=== PATIENT | male | born 1930 | race Caucasian/White ===

== ENCOUNTER 2017-07-10 07:37 | Inpatient (IN) | payer BC, OTHER ==
[2017-06-19 12:45] VITALS: BMI 28.0
--- NOTE | 2017-06-19 13:23 | PAT Medication Instructions ---
Service Date Jun 19, 2017. Current Home Medication List Amlodipine Besylate-Valsartan (Exforge), 1 TAB PO QDD Ascorbic Acid (Vitamin C), 1 CAP PO QAM Aspirin (Aspirin Ec), 81 MG PO QAM Cholecalciferol (Vitamin D), 400 UNIT PO QAM Dutasteride (Avodart), 0.5 MG PO QDD Magnesium (Magnesium), 200 MG PO QAM Multiple Vitamin (Multivitamin), 1 TAB PO QAM Simvastatin (Zocor), 40 MG PO QDD Terazosin Hcl (Hytrin), 10 MG PO QDD Vitamin E (Vitamin E), 400 UNIT PO QAM [Vitamin B12], 1 TAB PO QAM Medication Instructions For Your Scheduled Surgery - Hold the following medications 2 weeks prior to surgery: Vitamin E (Vitamin E), 400 UNIT PO QAM - Hold the following medications the morning of surgery: [Vitamin B12], 1 TAB PO QAM Magnesium (Magnesium), 200 MG PO QAM Multiple Vitamin (Multivitamin), 1 TAB PO QAM Cholecalciferol (Vitamin D), 400 UNIT PO QAM Ascorbic Acid (Vitamin C), 1 CAP PO QAM - Take the following medications the morning of surgery with a sip of water OTHERWISE NOTHING TO EAT OR DRINK AFTER MIDNIGHT: Aspirin (Aspirin Ec), 81 MG PO QAM - Take the following medications as scheduled the night before surgery: Dutasteride (Avodart), 0.5 MG PO QDD Simvastatin (Zocor), 40 MG PO QDD Terazosin Hcl (Hytrin), 10 MG PO QDD Amlodipine Besylate-Valsartan (Exforge), 1 TAB PO QDD If you have any questions please call us at [phone] or [phone] or [phone]
[2017-06-19 13:58] LABS: BASO % 0.3 %; BASO ABS # 0.02 K/uL (0-0.2); COMPLETE YES; EOS % 3.4 %; HEMATOCRIT 36.2 % (42-52); IG% 0.3 %; LYMPH % 20.9 %; LYMPH ABS # 1.28 K/uL (1.2-3.4); MEAN CORPUSCULAR HEMOGLOBIN 31.1 pg (25-34); MEAN CORPUSCULAR HGB CONC 34.5 g/dl (32-36); MEAN PLATELET VOLUME 9.6 fL (7.4-10.4); MONO % 8.3 %; NEUT % 66.8 %; PLATELET COUNT 145 K/uL (130-400); RED BLOOD COUNT 4.02 M/uL (4.7-6.1); WHITE BLOOD COUNT 6.11 K/uL (4.8-10.8)
[2017-06-19 14:07] LABS: ESTIMATED AVERAGE GLUCOSE 105 mg/dl; HA1C FLAG Normal (Normal)
[2017-06-19 14:10] LABS: PROTHROMBIN TIME (PATIENT) 10.7 SECONDS (9.0-12.0)
[2017-06-19 14:14] LABS: BUN/CREATININE RATIO 15.2 (10-20); CALCIUM 9.4 mg/dl (8.5-10.1); POTASSIUM 4.3 mmol/L (3.5-5.1)
[2017-06-19 14:19] LABS: URINE APPEARANCE CLEAR (CLEAR); URINE BILIRUBIN NEG (NEG); URINE COLOR DK YELLOW; URINE NITRITE NEG (NEG); URINE SPECIFIC GRAVITY 1.025 (1.000-1.030); UROBILINOGEN NEG (NEG); ZZUR CULT IF INDIC CLEAN CATCH NO
[2017-06-19 14:26] LABS: MANUAL MICROSCOPIC REQUIRED? NO; REVIEW REQ? NO
--- NOTE | 2017-06-19 14:38 | DIAGNOSTIC IMAGING REPORT ---
CHEST PREADMISSION(PA/LAT) CLINICAL HISTORY: Preoperative chest COMPARISON STUDY: 07/21/2015 FINDINGS: The heart is normal in size. There is aortic tortuosity. There is no failure. There is no focal pulmonary consolidation. There is stable mild left apical pleural thickening. There are minor left basilar atelectatic changes. There is ankylosis of the dorsal spine with bridging calcification of anterior longitudinal ligament.[ IMPRESSION: No active disease in the chest. Electronically signed by: Ludwig James M.D. 06/19/2017 2:36 PM Dictated Date/Time: 06/19/2017 2:36 PM
--- NOTE | 2017-07-09 14:09 | HISTORY & PHYSICAL EXAMINATION ---
DATE OF ADMISSION: 07/10/2017 CHIEF COMPLAINT: Right hip pain. HISTORY OF PRESENT ILLNESS: The patient is an 86-year-old gentleman with known severe osteoarthritis about his right hip. He requires a walker for ambulation. He has significant pain and disability with activities of daily living. Due to ongoing pain and disability, he now desires to proceed with right total hip arthroplasty. PAST MEDICAL HISTORY: Hyperlipidemia, carotid artery disease, hypertension, and osteoarthritis. PAST SURGICAL HISTORY: Unknown. MEDICATIONS: Amlodipine/valsartan 5/160 one tablet daily, aspirin 81 mg daily, Avodart 0.5 mg daily, Ativan 0.5 mg p.o. at bedtime, nystatin/triamcinolone topical cream to affected area twice daily, Zocor 40 mg at bedtime, Hytrin 10 mg daily, and Eola 1 tablet q. 6 hours p.r.n. pain. ALLERGIES: No known drug allergies. SOCIAL HISTORY AND REVIEW OF SYSTEMS: Noncontributory. PHYSICAL EXAMINATION: GENERAL: Well-nourished and well-developed elderly male who appears his stated age. HEENT: Normocephalic and atraumatic. Extraocular movements intact. Oropharynx is pink and moist. NECK: Supple without adenopathy. LUNGS: Clear to auscultation bilaterally. HEART: Regular rate and rhythm. ABDOMEN: Soft, nontender, and nondistended. EXTREMITIES: Upper extremities are within normal limits. The right hip demonstrates severe loss of motion. There is minimal internal internal/external rotation with significant pain. X-RAYS: X-rays were reviewed. He has severe osteoarthritis about the right hip with complete loss of the joint space. It is difficult to tell where the femoral head ends and the acetabulum begins. There are diffuse osteophytes around the hip joint. ASSESSMENT: Right hip degenerative joint disease. PLAN: Risks versus benefits were discussed. Consent was obtained. The patient's primary care physician is Dr. Nicholas. We will proceed with right total hip arthroplasty upon preop workup and medical clearance. HAZEL
[2017-07-10] VITALS (10 sets, daily range): BP systolic 96–166; BP diastolic 53–78; PULSE 79–87; TEMP 36.3–36.7; O2SAT 95–99; Ht 177.8 cm; Wt 88.6 kg
[~2017-07-10] VITALS: Ht 177.8 cm; Wt 88.6 kg
[2017-07-10] MEDS: TRANEXAMIC ACID INJ 1,000 MG in SODIUM CHLORIDE 0.9% 100ML 100 ML IV SCH ×2 (06:30→09:42)
[~2017-07-10 07:37] MED LIST: ACETAMINOPHEN 500 MG TAB PO SCH; AMLO5TAB PO; ASCO1CAP3 PO; ASPI81TA28 PO; BUPIVACAINE 0.5 % 5 MG/1 ML PF 10ML VIAL ONE; CEFAZOLIN 2000 MG/60 ML D5W 60 ML IV SCH; CHOL400T PO; CeleBREX 200 MG CAP PO SCH; DEXAMETHASONE 4 MG TAB PO SCH; DUTA0.5C PO; FAMOTIDINE 20 MG TAB PO SCH; GABAPENTIN 300 MG CAP PO SCH; LACTATED RINGER'S 1000ML 1,000 ML IV SCH; LACTATED RINGER'S 1000ML 500 ML IV ONE; MAGN200T3 PO; METOCLOPRAMIDE HCL 10 MG TAB PO SCH; MULTTAB58 PO; ROPIVACAINE 5MG/ML 30 ML 150 MG, BUPIVACAINE/EPINEPHR 0.5% MPF 30 ML, KETOROLAC TROMETH... INFIL SCH; SIMV40TA4 PO; TERA1CAP63 PO; VITA1TAB4 PO; VITAMIN B12 PO
--- NOTE | 2017-07-10 08:08 | History & Physical Bridge Note ---
H&P Re-Evaluation Bridge Note: I have examined the patient, reviewed the History & Physical and in the interval since the performance of the History & Physical I have noted the following changes of clinical significance: No changes noted
[2017-07-10] MEDS ORDERED: LIDOCAINE HCL 2% 2 ML VIAL (20MG/ML) ONE (08:49)
[2017-07-10] MEDS ORDERED: FENTANYL CITRATE INJ 50 MCG/1 ML 2 ML VIAL ONE (08:49)
[2017-07-10] MEDS ORDERED: MIDAZOLAM HCL 1 MG/ML 2ML VIAL ONE (08:49)
[2017-07-10] MEDS ORDERED: ONDANSETRON INJ 2 MG/ML 2 ML VIAL ONE (08:50)
[2017-07-10] MEDS ORDERED: PROPOFOL IV EMULSION 10 MG/ML 20 ML VIAL IV ONE (08:50)
[2017-07-10] MEDS ORDERED: POVIDONE-IODINE OP SOLN 30 ML BTL ONE (09:58)
[2017-07-10] MEDS ORDERED: BACITRACIN 50000 UNIT VIAL ONE (09:58)
[2017-07-10] MEDS ORDERED: ORTHO JOINT ANESTHETIC ONE (09:58)
[2017-07-10] MEDS ORDERED: HYDROmorphone INJ 2 MG/ML SYR/VIAL IV PRN (10:15)
[2017-07-10] MEDS ORDERED: PHENYLEPHRINE 100MCG/ML 5ML SYR IV PRN (10:15)
[2017-07-10] MEDS ORDERED: ONDANSETRON INJ 2 MG/ML 2 ML VIAL IV PRN ×2 (10:15→12:00)
[2017-07-10] MEDS ORDERED: ATROPINE SULFATE 0.1 MG/ML 5ML SYR IV PRN (10:15)
[2017-07-10] MEDS ORDERED: EpHEDrine SULFATE INJ 50 MG/ML AMP IV PRN (10:15)
[2017-07-10] MEDS ORDERED: KETOROLAC TROMETHAMINE 15 MG/ML VIAL IV. PRN (10:15)
[2017-07-10] MEDS ORDERED: WATER, STERILE FOR INJ 10 ML VIAL ONE (11:09)
[2017-07-10] MEDS ORDERED: EpHEDrine SULFATE INJ 50 MG/ML AMP ONE (11:09)
[2017-07-10] MEDS ORDERED: PHENYLEPHRINE HCL INJ 10 MG/ML VIAL ONE (11:10)
--- NOTE | 2017-07-10 11:15 | [facility] Post Operative Brief Note ---
Immediate Operative Summary Operative Date Jul 10, 2017. Pre-Operative Diagnosis Right hip degenerative joint disease Post-Operative Diagnosis Right hip degenerative joint disease Procedure(s) Performed Right total hip arthroplasty; uncemented Surgeon Dr. Grant Economics Faculty Member Surgeon(s) Wes Weaver PA-C Estimated Blood Loss 50cc Findings SEVERE oa Specimens A. Right femoral head Disposition Recovery Room / PACU
--- NOTE | 2017-07-10 11:24 | OPERATIVE REPORT ---
DATE OF OPERATION: 07/10/2017 PREOPERATIVE DIAGNOSIS: Osteoarthritis, right hip. POSTOPERATIVE DIAGNOSIS: Osteoarthritis, right hip. PROCEDURE: Right connective total hip arthroplasty. SURGEON: Dr. Grant. INSPECTOR GOVERNMENT PROPERTY: ALEJANDRA Alfaro ANESTHESIA: spinal. COMPLICATIONS: None. IMPLANTS USED: Acetabular reamer used 58, acetabular shell 58, femoral stem 5, and femoral head +0 x 36 ceramic. PROCEDURE: Following induction of adequate spinal anesthesia, the patient was placed in left lateral decubitus position and a right Stephanie-Langenbeck incision was made. Subcutaneous tissue was sharply dissected. Electrocautery used for hemostasis. The fascia was incised throughout the length of the wound and a ramon scissor placed beneath the short external rotators. The pyriformis was tagged with #1 Vicryl. The short external rotators were divided from the posterior aspect of the femur using electrocautery. These were swept posteriorly. A T-capsulotomy incision was made and the hip was dislocated using a combination of flexion, adduction, and internal rotation. Exposure of the femoral neck with old-style Hohmann and a blunt Hohmann was carried out and a femoral rasp was utilized as a guide for making the appropriate level femoral neck cut. This bone fragment was removed and reserved on the back table. Next, attention was turned to the acetabulum where bone hook was used to retract the femur while the offset retractors were placed anterior and posteriorly. A double-angled Hohmann was placed in superior and anterior position exposing the acetabulum nicely. Acetabular labrum as well as posterior capsule elements were removed using a long knife and a long pickup. Fovea centralis was cleared of all soft tissue. Sequential reamings were carried up to a 58 and decision was made to proceed with impaction of a 58 trabecular metal cup. This was impacted and held using a single 35 mm bone screw. The acetabular liner was placed with 15 of elevated posterior wall in the superior and posterior position. Next, attention was turned to the femoral portion of the case where a Bovie and pickup was used to further clear short external rotators from their insertion on the femur. Box osteotome was used to gain access to the femoral canal and the T-handled rasp and a rattail rasp were used to further open and lateral the canal. Sequentially raspings were carried up to a 5, which gave good fit and fill of the proximal femur. A trial reduction was carried out and std offset femoral neck component was chosen as the size to be used. A +0 x 36 mm femoral head was impacted into position, +0 head was utilized. The trial reduction was stable in all degrees of rotation with no [id number] impingement. The hip was dislocated. The trial components were removed and the final femoral stem, neck, and femoral head combination were assembled on the back table and impacted into position. Hip was relocated. Range of motion checked once again successful and the wound was irrigated. The pyriformis repaired to the greater trochanter using #1 Vicryl [id number] suture. A Hemovac drain was placed and the fascia was closed using #1 Vicryl, subcutaneous tissue was closed using 0 Dexon, and skin was closed with dudley. Sterile dressing of Adaptic, 4 x 4's, ABDs, and foam tape was applied. The patient tolerated the procedure well. Due to the complex nature of the procedure, the entire surgery was performed with the operational assistance of ALEJANDRA Alfaro. The housing assistant, under direct supervision, was involved in the actual performance of all aspects of the surgical procedure including hemostasis, tissue retraction and incision, instrument management, patient positioning, and wound closure. DISPOSITION: Recovery room, stable. I attest to the content of the Intraoperative Record and any orders documented therein. Any exceptions are noted below. HAZEL
[2017-07-10] MEDS ORDERED: TAMSULOSIN HCL 0.4 MG CAP PO PRN (12:00)
[2017-07-10] MEDS ORDERED: OXYCODONE HCL IR 5 MG TAB (IMMEDIATE RELEASE) PO PRN (12:00)
[2017-07-10] MEDS ORDERED: ALUMINUM/MAGNESIUM/SIMETH (MAALOX MAX) 30 ML UDC PO PRN (12:00)
[2017-07-10] MEDS ORDERED: BISACODYL 10 MG SUPP PR PRN (12:00)
[2017-07-10] MEDS ORDERED: MoRPHine SULFATE 2 MG/ML CARP IV PRN (12:00)
[2017-07-10] MEDS ORDERED: MAGNESIUM HYDROXIDE SUSP 30 ML UDC PO PRN (12:00)
--- NOTE | 2017-07-10 12:23 | DIAGNOSTIC IMAGING REPORT ---
SINGLE VIEW PELVIS; SINGLE VIEW RIGHT HIP CLINICAL HISTORY: Postoperative examination. FINDINGS: 2 AP portable views of the pelvis with a crosstable lateral portable view of the right hip are obtained. A bipolar right hip arthroplasty is in near-anatomic alignment. A single cortical lag screw transfixes the acetabular cup. No acute fracture is identified. There are expected postoperative changes overlying the right hip including subcutaneous gas, a surgical drain, and soft tissue swelling. Advanced arthritic change is seen in the left hip. Sclerotic change is noted in the sacroiliac joints. Lumbosacral spondylosis is seen. There is advanced atherosclerotic calcification of the femoral arteries. IMPRESSION: Expected postoperative findings status post right hip arthroplasty. No acute fracture is seen. Electronically signed by: Chris Ruiz M.D. 07/10/2017 12:22 PM Dictated Date/Time: 07/10/2017 12:21 PM
--- NOTE | 2017-07-10 13:59 | Anesthesiology Progress Note ---
Anesthesia Post Op Note Date & Time Jul 10, 2017 at 13:59 Vital Signs Pain Intensity: 0.0 Vital Signs Past 12 Hours Date Time Temp Pulse Resp B/P (MAP) Pulse Ox O2 Delivery O2 Flow Rate FiO2 07/10/17 13:30 82 18 118/63 (81) 99 07/10/17 13:00 36.4 85 14 110/62 (78) 95 Nasal Cannula 2.0 07/10/17 13:00 Nasal Cannula 2.0 07/10/17 13:00 95 Nasal Cannula 2.0 07/10/17 12:35 36.4 91 17 125/63 98 Nasal Cannula 2 07/10/17 12:25 84 17 136/68 98 Nasal Cannula 2 07/10/17 12:15 83 15 137/60 98 Nasal Cannula 2 07/10/17 12:05 88 19 131/63 99 Oxymask 10 07/10/17 11:55 86 17 137/61 100 Oxymask 10 07/10/17 11:46 36.3 85 14 116/56 96 Oxymask 10 07/10/17 08:15 36.5 87 18 166/78 96 Room Air Notes Mental Status: alert / awake / arousable, participated in evaluation Pt Amnestic to Procedure: Yes Nausea / Vomiting: adequately controlled Pain: adequately controlled Airway Patency, RR, SpO2: stable & adequate BP & HR: stable & adequate Hydration State: stable & adequate Anesthetic Complications: no major complications apparent
[2017-07-10] MEDS ORDERED: HydrALAZINE HCL 20 MG/ML VIAL IV. PRN (14:00)
--- NOTE | 2017-07-10 14:15 | Medical Consult ---
Consultation Date of Consultation: Jul 10, 2017. Attending Physician: Behzad Grant M.D. Reason for Consultation: Medical management History of Present Illness Patient is a 86 y/o male, with PMHx of HTN, HLD, CAD, BPH, and OA, s/p R PAMELA by Dr. Grant on 07/10. Tolerated procedure well, no complications noted. Ate postop without any issues. Pain is well controlled. No flatus/BM postop. Patient denies any fever, chills, sweats, lightheadedness, dizziness, vision changes, CP, palpitations, edema, SOB, wheezing, cough, abdominal pain, nausea, vomiting, diarrhea, urinary symptoms, melena, numbness/tingling, weakness, anxiety/depression, active bleeding, or new skin discoloration/changes. Past Medical/Surgical History PAST MEDICAL HISTORY: Hyperlipidemia carotid artery disease hypertension osteoarthritis BPH Family History Noncontributory Social History Smoking Status: Never Smoker Alcohol Use: none Drug Use: none Marital Status: Housing Status: lives with family Allergies Coded Allergies: No Known Allergies (Verified , 07/10/17) Home Medications Reported Home Medications Medications Dose Route/Sig Max Daily Dose Days Date Category Dose Instructions Aspirin Ec (Aspirin) 81 Mg Tab 81 Mg PO QAM 06/19/17 Reported Vitamin D (Cholecalciferol) 400 Unit Tab 400 Unit PO QAM 07/21/15 Reported Vitamin C (Ascorbic Acid) 500 Mg Cap 1 Cap PO QAM 07/21/15 Reported Vitamin E 400 Unit Tab 400 Unit PO QAM 07/21/15 Reported [Vitamin B12] 1 Tab PO QAM 07/21/15 Reported Magnesium 200 Mg Tab 200 Mg PO QAM 07/21/15 Reported Multivitamin (Multiple Vitamin) 1 Tab Tab 1 Tab PO QAM 07/21/15 Reported Hytrin (Terazosin HCl) 10 Mg Cap 10 Mg PO QDD 07/21/15 Reported Zocor (Simvastatin) 40 Mg Tab 40 Mg PO QDD 07/21/15 Reported Avodart (Dutasteride) 0.5 Mg Cap 0.5 Mg PO QDD 07/21/15 Reported Exforge (Amlodipine Besylate-Valsartan) 1 Tab Tab 1 Tab PO QDD 90 07/21/15 Reported PT MED LIST READS AMLODOPINE 5MG - VALSARTAN 160MG Current Inpatient Medications Current Inpatient Medications Medications (Trade) Dose Ordered Sig/Karon Route Start Time Stop Time Status Last Admin Dose Admin Ropivacaine 150 mg/Bupivacaine HCl/Epinephrine Bitart 30 ml/ Ketorolac Tromethamine 30 mg/Dexamethasone Sodium Phosphate 4 mg/Ketamine HCl 10 mg/Clonidine 100 mcg/Sodium Chloride 30 ml/ Empty Bag 93.2 ml @ 0 mls/hr TODAY@06 INFIL 07/10/17 06:00 07/10/17 16:00 Cefazolin Sodium 60 ml @ 100 mls/hr PREOP IV 07/10/17 06:00 07/10/17 18:00 07/10/17 10:14 100 MLS/HR Acetaminophen (Tylenol Tab) 1,000 mg PREOP PO 07/10/17 06:00 07/10/17 18:00 07/10/17 08:57 1,000 MG Celecoxib (CeleBREX CAP) 200 mg PREOP PO 07/10/17 06:00 07/10/17 18:00 07/10/17 08:57 200 MG Dexamethasone (Decadron Tab) 8 mg PREOP PO 07/10/17 06:00 07/10/17 18:00 07/10/17 08:57 8 MG Famotidine (Pepcid Tab) 20 mg PREOP PO 07/10/17 06:00 07/10/17 18:00 07/10/17 08:57 20 MG Gabapentin (Neurontin Cap) 300 mg PREOP PO 07/10/17 06:00 07/10/17 18:00 07/10/17 08:56 300 MG Metoclopramide HCl (Reglan Tab) 10 mg PREOP PO 07/10/17 06:00 07/10/17 18:00 07/10/17 08:56 10 MG Tranexamic Acid 1000 mg/Sodium Chloride 110 ml @ 660 mls/hr TODAY@06,0630 IV 07/10/17 06:00 07/10/17 18:00 07/10/17 09:42 660 MLS/HR Lactated Ringer's 1,000 ml @ 60 mls/hr [id number] IV 07/10/17 06:00 07/10/17 22:39 Lactated Ringer's 1,000 ml @ 15 mls/hr Q24H IV 07/10/17 06:00 07/11/17 05:59 07/10/17 08:15 15 MLS/HR Ondansetron HCl (Zofran Inj) 4 mg ONE PRN IV 07/10/17 10:15 07/10/17 15:15 Atropine Sulfate (Atropine Sulfate 0.1MG/Ml Inj) 0.5 mg Q1M PRN IV 07/10/17 10:15 07/10/17 15:15 Ephedrine Sulfate (EpHEDrine SULFATE INJ) 5 mg Q5M PRN IV 07/10/17 10:15 07/10/17 15:15 Ketorolac Tromethamine (Toradol Inj) 15 mg ONE PRN IV. 07/10/17 10:15 07/10/17 15:15 Hydromorphone HCl (Dilaudid Inj) 0.25 mg Q5M PRN IV 07/10/17 10:15 07/10/17 15:15 Phenylephrine HCl (Wyatt-Synephrine 500MCG/5ML Syr) 100 mcg Q5M PRN IV 07/10/17 10:15 07/10/17 15:15 Simvastatin (Zocor Tab) 40 mg QDD PO 07/10/17 17:45 08/09/17 17:59 UNV Terazosin HCl (Hytrin Cap) 10 mg QDD PO 07/10/17 17:45 08/09/17 17:59 UNV Non-Formulary Medication (Amlodipine Besylate-Valsartan (Exforge)) 1 tab QDD PO 07/10/17 17:45 08/09/17 17:59 UNV Non-Formulary Medication (Dutasteride (Avodart)) 0.5 mg QDD PO 07/10/17 17:45 08/09/17 17:59 UNV Non-Formulary Medication (Magnesium ) 200 mg QAM PO 07/11/17 09:00 08/10/17 08:59 UNV Morphine Sulfate (MoRPHine SULFATE INJ) 2 mg Q4HWA PRN IV 07/10/17 12:00 07/24/17 11:59 Potassium Chloride/Dextrose/ Sod Cl 1,000 ml @ 100 mls/hr Q10H IV 07/10/17 11:46 07/11/17 11:45 UNV Oxycodone HCl (Roxicodone Immediate Rel Tab) 1 TABLET FOR PAIN RATING... Q4H PRN PO 07/10/17 12:00 07/24/17 11:59 Acetaminophen (Tylenol Tab) 1,000 mg Q8H PO 07/10/17 12:00 08/09/17 11:59 UNV Magnesium Hydroxide (Milk Of Magnesia Susp) 30 ml Q6H PRN PO 07/10/17 12:00 08/09/17 11:59 Bisacodyl (Dulcolax Supp) 10 mg DAILY PRN [place] 07/10/17 12:00 08/09/17 11:59 Senna (Senokot Tab) 17.2 mg HS PO 07/10/17 21:00 08/09/17 20:59 UNV Docusate Sodium (coLACE CAP) 100 mg BID PO 07/10/17 21:00 08/09/17 20:59 UNV Al Hydrox/Mg Hydrox/Simethicone (Maalox Max Susp) 15 ml Q4H PRN PO 07/10/17 12:00 08/09/17 11:59 Multivitamins (Multivitamin Tab) 1 tab QAM PO 07/11/17 09:00 08/10/17 08:59 UNV Ondansetron HCl (Zofran Inj) 4 mg Q6H PRN IV 07/10/17 12:00 08/09/17 11:59 Ferrous Gluconate (Ferrous Gluconate Tab) 324 mg TIDM PO 07/10/17 12:00 08/09/17 11:59 UNV Pantoprazole Sodium (Protonix Tab) 40 mg QAM PO 07/11/17 09:00 08/10/17 08:59 UNV Tramadol HCl (Ultram Tab) 1 TABLET FOR PAIN RATING... Q4H PRN PO 07/10/17 12:00 08/09/17 11:59 Tamsulosin HCl (Flomax Cap) 0.4 mg QAM PRN PO 07/10/17 12:00 08/09/17 11:59 Cefazolin Sodium 2000 mg/Dextrose 60 ml @ 100 mls/hr Q8H IV 07/10/17 12:00 07/10/17 20:35 UNV Aspirin (Ecotrin Tab) 81 mg BID PO 07/10/17 21:00 08/09/17 20:59 UNV Physical Exam Date Time Temp Pulse Resp B/P (MAP) Pulse Ox O2 Delivery O2 Flow Rate FiO2 07/10/17 13:30 82 18 118/63 (81) 99 07/10/17 13:00 36.4 85 14 110/62 (78) 95 Nasal Cannula 2.0 07/10/17 13:00 Nasal Cannula 2.0 07/10/17 13:00 95 Nasal Cannula 2.0 07/10/17 12:35 36.4 91 17 125/63 98 Nasal Cannula 2 07/10/17 12:25 84 17 136/68 98 Nasal Cannula 2 07/10/17 12:15 83 15 137/60 98 Nasal Cannula 2 07/10/17 12:05 88 19 131/63 99 Oxymask 10 07/10/17 11:55 86 17 137/61 100 Oxymask 10 07/10/17 11:46 36.3 85 14 116/56 96 Oxymask 10 07/10/17 08:15 36.5 87 18 166/78 96 Room Air General Appearance: no apparent distress, + pertinent finding (O2 NC) Head: normocephalic, atraumatic Eyes: PERRL ENT: hearing grossly normal Neck: supple Respiratory/Chest: lungs clear, no respiratory distress, no accessory muscle use Cardiovascular: regular rate, rhythm Abdomen/GI: normal bowel sounds, non tender, soft Extremities/Musculoskelatal: no calf tenderness, no pedal edema, + pertinent finding (MARVA/SCDs on ) Neurologic/Psych: alert, normal mood/affect, oriented x 3 Skin: normal color, warm/dry, no rash Assessment & Plan Patient is a 86 y/o male, with PMHx of HTN, HLD, CAD, BPH, and OA, s/p R PAMELA by Dr. Grant on 07/10. s/p R PAMELA by Dr. Grant on 07/10: - Pain management, PT/OT, and DVT prophylaxis as per primary team - Follow postop CBC and PRP - Encourage incentive spirometer HTN: - Hold Amlodipine/Valsartan pending postop PRP tomorrow AM - Hydralazine IV PRN CAD, HLD: Zocor 40 mg daily BPH: Continue Hytrin and Avodart GI prophylaxis: Protonix 40 mg daily DVT prophylaxis: ASA 81 mg BID as per surgical team Code Status: LEVEL I, FULL Dispo: As per primary team Thank you for this consultation. We will continue to follow. .Attending Addendum: I have physically seen this patient, have directed the physician assistants medical activities, and agree with the H&P as noted above with the following exceptions as noted. Assessment and Plan: Status post right total hip arthroplasty on 07/[address] Grant-- Medically stable CAD/hypertension-- Hold amlodipine and losartan. Hydralazine IV when necessary. BPH-- continue Hytrin and Avodart Hyperlipidemia--continue Zocor 40 mg daily. GERD-- Continue pantoprazole 40 mg daily.
[2017-07-10] MEDS: D5W AND 1/2NSS + 20MEQ KCL 1,000 ML IV SCH (15:16)
[2017-07-10] MEDS: ACETAMINOPHEN 500 MG TAB PO SCH ×2 (15:16→22:43)
[2017-07-10] MEDS ORDERED: AMLODIPINE BESYLATE VALSARTAN PO SCH (17:45)
[2017-07-10] MEDS: CEFAZOLIN IV 2,000 MG in DEXTROSE 5% 50ML 50 ML IV SCH (18:29)
[2017-07-10] MEDS: FERROUS GLUCONATE 324 MG TAB PO SCH (18:31)
[2017-07-10] MEDS: SIMVASTATIN 40 MG TAB PO SCH (18:31)
[2017-07-10] MEDS: DOCUSATE SODIUM 100 MG CAP PO SCH (20:36)
[2017-07-10] MEDS: SENNA 8.6 MG TAB PO SCH (20:37)
[2017-07-10] MEDS: ASPIRIN 81 MG ECTAB PO SCH (20:37)
[2017-07-11] MEDS: D5W AND 1/2NSS + 20MEQ KCL 1,000 ML IV SCH ×2 (01:32→11:00)
[2017-07-11] MEDS: CEFAZOLIN IV 2,000 MG in DEXTROSE 5% 50ML 50 ML IV SCH (01:33)
[2017-07-11 03:50] VITALS: BP 118/64; PULSE 95; TEMP 36.8; O2SAT 99
[2017-07-11 05:59] LABS: COMPLETE YES; HEMATOCRIT 27.5 % (42-52); IG% 0.3 %; LYMPH % 5.7 %; LYMPH ABS # 0.66 K/uL (1.2-3.4); MEAN CELL VOLUME 89.6 fL (80-100); MEAN CORPUSCULAR HEMOGLOBIN 30.6 pg (25-34); MEAN CORPUSCULAR HGB CONC 34.2 g/dl (32-36); MEAN PLATELET VOLUME 9.6 fL (7.4-10.4); MONO % 10.2 %; NEUT % 83.8 %; PLATELET COUNT 132 K/uL (130-400); RED BLOOD COUNT 3.07 M/uL (4.7-6.1); WHITE BLOOD COUNT 11.48 K/uL (4.8-10.8)
[2017-07-11] MEDS: ACETAMINOPHEN 500 MG TAB PO SCH ×3 (06:30→22:38)
[2017-07-11 06:31] LABS: BUN/CREATININE RATIO 17.8 (10-20); CALCIUM 8.2 mg/dl (8.5-10.1); CREATININE 1.5 mg/dl (0.60-1.40); POTASSIUM 4.6 mmol/L (3.5-5.1)
[2017-07-11 07:05] VITALS: BP 117/65; PULSE 92; TEMP 36.6; O2SAT 97
--- NOTE | 2017-07-11 07:47 | Orthopedic Progress Note ---
Orthopedic Progress Note Date of Service Jul 11, 2017. Subjective Post OP Day: 1 Reports: feeling well Objective N/V intact, dressing C/D/I (Hemovac in place), toes mobile Date Time Temp Pulse Resp B/P (MAP) Pulse Ox O2 Delivery O2 Flow Rate FiO2 07/11/17 03:50 36.8 95 16 118/64 (82) 99 Room Air 07/10/17 23:17 Room Air 07/10/17 23:14 36.7 79 17 105/57 (73) 96 Room Air 07/10/17 19:24 36.4 84 18 97/58 (71) 97 Room Air 07/10/17 18:30 84 135/73 (93) 97 Room Air 07/10/17 16:08 36.3 84 18 96/54 (68) 99 Nasal Cannula 2.0 07/10/17 15:20 Nasal Cannula 2.0 07/10/17 15:01 87 18 103/53 (70) 98 07/10/17 14:00 87 18 110/62 (78) 99 07/10/17 13:30 82 18 118/63 (81) 99 07/10/17 13:00 36.4 85 14 110/62 (78) 95 Nasal Cannula 2.0 07/10/17 13:00 Nasal Cannula 2.0 07/10/17 13:00 95 Nasal Cannula 2.0 07/10/17 12:35 36.4 91 17 125/63 98 Nasal Cannula 2 07/10/17 12:25 84 17 136/68 98 Nasal Cannula 2 07/10/17 12:15 83 15 137/60 98 Nasal Cannula 2 07/10/17 12:05 88 19 131/63 99 Oxymask 10 07/10/17 11:55 86 17 137/61 100 Oxymask 10 07/10/17 11:46 36.3 85 14 116/56 96 Oxymask 10 07/10/17 08:15 36.5 87 18 166/78 96 Room Air Laboratory Results 24 Hours: Test 07/11/17 05:43 White Blood Count 11.48 K/uL Red Blood Count 3.07 M/uL Hemoglobin 9.4 g/dL Hematocrit 27.5 % Mean Corpuscular Volume 89.6 fL Mean Corpuscular Hemoglobin 30.6 pg Mean Corpuscular Hemoglobin Concent 34.2 g/dl Platelet Count 132 K/uL Mean Platelet Volume 9.6 fL Neutrophils (%) (Auto) 83.8 % Lymphocytes (%) (Auto) 5.7 % Monocytes (%) (Auto) 10.2 % Eosinophils (%) (Auto) 0.0 % Basophils (%) (Auto) 0.0 % Neutrophils # (Auto) 9.62 K/uL Lymphocytes # (Auto) 0.66 K/uL Monocytes # (Auto) 1.17 K/uL Eosinophils # (Auto) 0.00 K/uL Basophils # (Auto) 0.00 K/uL Assessment & Plan Assessment: 86 yo male stable POD #1 s/p right PAMELA Plan: 1. Med management 2. DVT prophylaxis- ASA, SCDs 3. PT/OT 4. D/C planning- home w/ HH
--- NOTE | 2017-07-11 07:49 | Discharge Instructions ---
Discharge Instructions Date of Service Jul 11, 2017. Admission Reason for Admission: Right Hip Osteoarthritis Discharge Discharge Diagnosis / Problem: Right hip arthritis Discharge Goals Goal(s): Decrease discomfort, Improve function Activity Recommendations Activity Limitations: as noted below Weightbearing Status: Right weightbearing (as tolerated) . Instructions / Follow-Up Instructions / Follow-Up ACTIVITY RECOMMENDATIONS: SELF CARE INSTRUCTIONS AFTER TOTAL HIP REPLACEMENT Until the incision and soft tissues around your hip have healed, there is a possibility that the hip prosthesis could dislocate. A. Observe the following precautions to prevent dislocation: 1. Don't bend your hip greater than 90 degrees. 2. Avoid crossing your legs or ankles while standing or lying. 3. Sit with your feet placed 6 inches apart. 4. When sitting, keep your knees below your hips. Sit on a firm surface, avoid deep, soft chairs and couches. Use an elevated toilet seat in the bathroom. 5. Don't bend over at the waist. Use a long handled shoehorn and a sock aid to help you put on your shoes and socks. A warehouse forklift operator can help you picker objects that are too high or too low to reach. 6. Keep car riding to a minimum for at least one month after surgery. B. Your balance may be shaky for a while. Use crutches or a walker until directed by your doctor. C. Use hand rails when walking on stairs. D. Wear low heeled shoes with non-slip soles. E. Be sure that your floors are free of things that could trip you - throw rugs , electrical cords, small objects. Avoid wet and waxed floors, especially with crutches and canes. F. Try to walk several times a day with rest periods between. G. Continue with all the exercises taught to you in the hospital. Again, make walking a part of your daily routine. SPECIAL CARE INSTRUCTIONS: VERY IMPORTANT TO READ AND REVIEW A. You may still be at risk for phlebitis and blood clots. 1. Wear surgical stockings (MARVA hose) for 2 weeks after surgery to improve circulation and reduce swelling. 2. Take Aspirin 81mg twice daily for 4 weeks or as directed by your doctor. This is your blood thinner. 3. High risk patients may be prescribed a stronger blood thinner if necessary. 4. If you are on Coumadin normally, your family doctor/shade classifier should monitor your blood work. Expect a phone call the day of or the day after bloodwork is drawn to adjust your dosage. B. You must take antibiotics before having dental work, bladder, bowel and other surgery. Your doctor will provide you with a permanent card to carry describing precautions. C. Call [facility] if you have a fever, redness or swelling around the incision, cloudy drainage from incision, or sudden increase in pain in your hip, not relieved by your regular pain medication. D. Please call the office at if you have any concerns or questions about your operation or recovery. * YOU MAY SHOWER, NO TUB BATHS UNTIL CLEARED BY YOUR DOCTOR. * WEAR MARVA HOSE 20 HOURS PER DAY FOR 2 WEEKS. * YOU SHOULD USE A WALKER OR CRUTCHES FOR 2-4 WEEKS. THIS WILL HELP PREVENT STRAIN ON YOUR HIP MUSCLE AND ALLOW IT TO HEAL PROPERLY. YOU MAY WEAN TO A CANE TOLERATED. * MOST PATIENTS WILL HAVE HOME NURSING FOR THERAPY. IF YOU DECIDE TO DO OUTPATIENT PHYSICAL THERAPY, PLEASE SCHEDULE THIS 3 TIMES PER WEEK. Silverlon- This is a large adhesive bandage that contains silver ions. This helps your incision heal by fighting off bacteria and protecting it from the outside environment. You are permitted to shower with this dressing. This will remain on your incision for 7 days and then should be removed. Some visible blood or drainage through the dressing window is normal. If there is significant drainage or leaking noted before the 7 days notify your doctor's office immediately. Once removed, keep incision clean and dry. If there is any drainage or redness noted, please call your surgeon. FOLLOW UP VISIT: If appointment is not already scheduled: Please call [facility] to make a follow-up appointment for 2 weeks after your surgery at . Current Hospital Diet Patient's current hospital diet: Regular Diet Discharge Diet Recommended Diet: Regular Diet Procedures Procedures Performed: Right total hip arthroplasty; uncemented Pending Studies Studies pending at discharge: no Laboratory Results Hemoglobin A1c Test 06/19/17 13:33 Range/Units Estimated Average Glucose 105 mg/dl Hemoglobin A1c 5.3 4.5-5.6 % Medical Emergencies . Who to Call and When: Medical Emergencies: If at any time you feel your situation is an emergency, please call 911 immediately. . Non-Emergent Contact Non-Emergency issues call your: Surgeon Call Non-Emergent contact if: temperature is above 101.5, your pain is not controlled, wound has increased drainage, wound has increased redness . "Provider Documentation" section prepared by Dereje Fernandez PA-C. . VTE Core Measure Inpt VTE Proph given/why not?: Other Anticoagulation (ASA), T.E.D. Stockings, SCD's [place] Drug Monitoring Program Search Results: patient reviewed within database, no issues identified
--- NOTE | 2017-07-11 07:56 | Anesthesiology Progress Note ---
Anesthesia Post Op Note Date & Time Jul 11, 2017 at 07:56 Vital Signs Pain Intensity: 2.0 Vital Signs Past 12 Hours Date Time Temp Pulse Resp B/P (MAP) Pulse Ox O2 Delivery O2 Flow Rate FiO2 07/11/17 07:05 36.6 92 16 117/65 (82) 97 Room Air 07/11/17 03:50 36.8 95 16 118/64 (82) 99 Room Air 07/10/17 23:17 Room Air 07/10/17 23:14 36.7 79 17 105/57 (73) 96 Room Air Notes Mental Status: alert / awake / arousable, participated in evaluation Pt Amnestic to Procedure: Yes Nausea / Vomiting: adequately controlled Pain: adequately controlled Airway Patency, RR, SpO2: stable & adequate BP & HR: stable & adequate Hydration State: stable & adequate Neuraxial Anesthesia: sensory block resolved Anesthetic Complications: no major complications apparent
[2017-07-11] MEDS: MAGNESIUM OXIDE 400 MG TAB PO SCH (08:43)
[2017-07-11] MEDS: MULTIVITAMIN TAB PO SCH (08:43)
[2017-07-11] MEDS: DOCUSATE SODIUM 100 MG CAP PO SCH ×2 (08:44→20:27)
[2017-07-11] MEDS: PANTOprazole SOD 40 MG TAB PO SCH (08:44)
[2017-07-11] MEDS: FERROUS GLUCONATE 324 MG TAB PO SCH ×3 (08:44→17:47)
[2017-07-11] MEDS: ASPIRIN 81 MG ECTAB PO SCH ×2 (08:44→20:27)
[2017-07-11] MEDS: TRAMADOL HCL 50 MG TAB PO PRN (08:48)
--- NOTE | 2017-07-11 10:23 | Clinical Documentation Query ---
CLINICAL DOCUMENTATION QUERY Dr. GOMEZ, In your clinical opinion is this patient being managed for: ( ) Acute blood loss anemia ( ) Not Agree ( ) Other explanation of clinical findings (Please Explain) ( ) Unable to determine (Please Define) ( ) Need to Discuss The medical record reflects the following clinical findings, treatment, and risk factors. Clinical Indicators: 86 yo male presenting for elective R PAMELA. Baseline 12.5, Hct 36.2, post op Hgb 9.4, Hct 27.5. EBL of 50 cc with hemovac drainage of 280 cc on surgical day and an additional 100 cc overnight Treatment: serial CBC's, IV fluids Risk Factors: surgery associated blood loss Please clarify and document your clinical opinion in the progress notes and discharge summary. Terms such as "probable", "suspected", "likely", "questionable", "possible", or "still to be ruled out" are acceptable. IF IN AGREEMENT, YOU MUST DOCUMENT ABOVE DIAGNOSTIC STATEMENT IN DAILY PROGRESS NOTES AND DISCHARGE SUMMARY. This document is not part of the patient's record. Thank You, Daisha Robins, RN [phone]
--- NOTE | 2017-07-11 10:25 | Clinical Documentation Query ---
CLINICAL DOCUMENTATION QUERY Dr. ROY, In your clinical opinion is this patient being managed for: ( x) Acute blood loss anemia ( ) Not Agree ( ) Other explanation of clinical findings (Please Explain) ( ) Unable to determine (Please Define) ( ) Need to Discuss The medical record reflects the following clinical findings, treatment, and risk factors. Clinical Indicators: 86 yo male presenting for elective R PAMELA. Baseline 12.5, Hct 36.2, post op Hgb 9.4, Hct 27.5. EBL of 50 cc with hemovac drainage of 280 cc on surgical day and an additional 100 cc overnight Treatment: serial CBC's, IV fluids Risk Factors: surgery associated blood loss Please clarify and document your clinical opinion in the progress notes and discharge summary. Terms such as "probable", "suspected", "likely", "questionable", "possible", or "still to be ruled out" are acceptable. IF IN AGREEMENT, YOU MUST DOCUMENT ABOVE DIAGNOSTIC STATEMENT IN DAILY PROGRESS NOTES AND DISCHARGE SUMMARY. This document is not part of the patient's record. Thank You, Daisha Robins, RN [phone]
--- NOTE | 2017-07-11 10:57 | Progress Note ---
Subjective Date of Service: Jul 11, 2017. Subjective Pt evaluation today including: conversation w/ patient, conversation w/ family , physical exam, chart review, lab review, review of studies, review of inpatient medication list Not sleep well, otherwise doing okay, playing computer, deny fever and chills, pain well controlled Review of Systems Constitutional: No fever, No chills, No sweats, No weight loss, No weakness, No fatigue, No problem reported Eyes: No worsening of vision, No eye pain, No redness, No discharge, No diplopia ENT: No hearing loss, No unusual epistaxis, No nasal symptoms, No sore throat, No tinnitus, No dental problems, No trouble swallowing Respiratory: No cough, No sputum, No wheezing, No shortness of breath, No dyspnea on exertion, No dyspnea at rest, No hemoptysis Cardiac: No chest pain, No orthopnea, No PND, No edema, No claudication, No palpitations Abdomen: No pain, No nausea, No vomiting, No diarrhea, No constipation Musculoskeletal: + joint pain, No muscle pain, No swelling, No calf pain Male : No dysuria, No urinary frequency, No incontinence, No nocturia more than once/night, No slowing stream, No hematuria Neurologic: No memory loss, No paralysis, No weakness, No numbness/tingling, No vertigo, No balance problems Psychiatric: No depression symptoms, No anhedonism, No anxiety, No insomnia, No substance abuse Heme: No abnormal bleeding/bruising, No clotting problems, No swollen lymph nodes, No night sweats Endo: No fatigue, No excessive thirst, No excessive urination Skin: No rash, No itch, No new/changing skin lesions, No color change, No bleeding Objective Vital Signs Date Time Temp Pulse Resp B/P (MAP) Pulse Ox O2 Delivery O2 Flow Rate FiO2 07/11/17 07:30 Room Air 07/11/17 07:05 36.6 92 16 117/65 (82) 97 Room Air 07/11/17 03:50 36.8 95 16 118/64 (82) 99 Room Air 07/10/17 23:17 Room Air 07/10/17 23:14 36.7 79 17 105/57 (73) 96 Room Air 07/10/17 19:24 36.4 84 18 97/58 (71) 97 Room Air 07/10/17 18:30 84 135/73 (93) 97 Room Air 07/10/17 16:08 36.3 84 18 96/54 (68) 99 Nasal Cannula 2.0 07/10/17 15:20 Nasal Cannula 2.0 07/10/17 15:01 87 18 103/53 (70) 98 07/10/17 14:00 87 18 110/62 (78) 99 07/10/17 13:30 82 18 118/63 (81) 99 07/10/17 13:00 36.4 85 14 110/62 (78) 95 Nasal Cannula 2.0 07/10/17 13:00 Nasal Cannula 2.0 07/10/17 13:00 95 Nasal Cannula 2.0 07/10/17 12:35 36.4 91 17 125/63 98 Nasal Cannula 2 07/10/17 12:25 84 17 136/68 98 Nasal Cannula 2 07/10/17 12:15 83 15 137/60 98 Nasal Cannula 2 07/10/17 12:05 88 19 131/63 99 Oxymask 10 07/10/17 11:55 86 17 137/61 100 Oxymask 10 07/10/17 11:46 36.3 85 14 116/56 96 Oxymask 10 Physical Exam General Appearance: WD/WN, no apparent distress Eyes: normal inspection, PERRL, EOMI, sclerae normal ENT: normal ENT inspection, hearing grossly normal, pharynx normal Neck: supple, no adenopathy, thyroid normal, no JVD, no carotid bruits, trachea midline Respiratory/Chest: chest non-tender, lungs clear, normal breath sounds, no respiratory distress, no accessory muscle use Cardiovascular: regular rate, rhythm, no edema, no gallop, no JVD, no murmur Abdomen: normal bowel sounds, non tender, soft, no organomegaly, no pulsatile mass Extremities: non-tender, normal inspection, no pedal edema, no calf tenderness , normal capillary refill, pelvis stable, + pertinent finding (right hip local incision looks good, bilateral lower extremity pulses positive and symmetric) Neurologic/Psychiatric: cdl b driver II-XII nml as tested, no motor/sensory deficits, alert, normal mood/affect, oriented x 3, + abnormal cerebellar tests Skin: normal color, warm/dry, no rash Lymphatic: no adenopathy Laboratory Results Last 24 Hours Test 07/11/17 05:43 White Blood Count 11.48 K/uL Red Blood Count 3.07 M/uL Hemoglobin 9.4 g/dL Hematocrit 27.5 % Mean Corpuscular Volume 89.6 fL Mean Corpuscular Hemoglobin 30.6 pg Mean Corpuscular Hemoglobin Concent 34.2 g/dl Platelet Count 132 K/uL Mean Platelet Volume 9.6 fL Neutrophils (%) (Auto) 83.8 % Lymphocytes (%) (Auto) 5.7 % Monocytes (%) (Auto) 10.2 % Eosinophils (%) (Auto) 0.0 % Basophils (%) (Auto) 0.0 % Neutrophils # (Auto) 9.62 K/uL Lymphocytes # (Auto) 0.66 K/uL Monocytes # (Auto) 1.17 K/uL Eosinophils # (Auto) 0.00 K/uL Basophils # (Auto) 0.00 K/uL RDW Standard Deviation 40.1 fL RDW Coefficient of Variation 12.3 % Immature Granulocyte % (Auto) 0.3 % Immature Granulocyte # (Auto) 0.03 K/uL Sodium Level 138 mmol/L Potassium Level 4.6 mmol/L Chloride Level 107 mmol/L Carbon Dioxide Level 23 mmol/L Anion Gap 8.0 mmol/L Blood Urea Nitrogen 27 mg/dl Creatinine 1.50 mg/dl Est Creatinine Clear Calc Drug Dose 39.6 ml/min Estimated GFR () 48.2 Estimated GFR (Non- 41.6 BUN/Creatinine Ratio 17.8 Random Glucose 149 mg/dl Calcium Level 8.2 mg/dl Assessment and Plan 86 y/o male s/p R PAMELA by Dr. Grant on 07/10. Hospitalist consulted for medical management s/p R PAMELA by Dr. Grant on 07/10: - Pain management, PT/OT, and DVT prophylaxis as per primary team - Follow postop CBC and PRP - Encourage incentive spirometer HTN: - Hold Amlodipine/Valsartan pending postop PRP . Blood pressure still good at 110, will continue to hold , however patient's creatinine raised to 1.5 from normal range, need to resume cautiously after checking creatinine level tomorrow - Hydralazine IV PRN Possible acute kidney injury with elevated creatinine, at 1.5, we'll continue follow-up, tomorrow morning lab order CAD, HLD: Stable continue Zocor 40 mg daily BPH: Stable, Continue Hytrin and Avodart GI prophylaxis: Protonix 40 mg daily DVT prophylaxis: ASA 81 mg BID as per surgical team Code Status: LEVEL I, FULL Dispo: As per primary team Thank you for this consultation. We will continue to follow. Continued [facility] stay due to: multiple IV medications needed Discharge planning: home
[2017-07-11] MEDS ORDERED: ZOLPIDEM TARTRATE 5 MG TAB PO PRN (11:00)
[2017-07-11 13:45] VITALS: BP 124/65; PULSE 71; TEMP 36.6; O2SAT 99
[2017-07-11 15:22] VITALS: BP 152/73; PULSE 68; TEMP 36.6; O2SAT 100
[2017-07-11 17:45] VITALS: BP 128/65; PULSE 80
[2017-07-11] MEDS ORDERED: PT'S OWN MED: DUTASTERIDE 0.5MG PO SCH (17:45)
[2017-07-11] MEDS: SIMVASTATIN 40 MG TAB PO SCH (17:47)
[2017-07-11] MEDS: SENNA 8.6 MG TAB PO SCH (20:27)
[2017-07-11 23:17] VITALS: BP 162/71; PULSE 83; TEMP 36.6; O2SAT 98
[2017-07-12 03:31] VITALS: BP 137/68
[2017-07-12 05:56] VITALS: BP 142/66; PULSE 82; TEMP 36.6; O2SAT 96
[2017-07-12] MEDS: ACETAMINOPHEN 500 MG TAB PO SCH (05:59)
[2017-07-12] MEDS: TRAMADOL HCL 50 MG TAB PO PRN ×2 (06:00→11:37)
[2017-07-12 06:18] LABS: BASO % 0.1 %; BASO ABS # 0.01 K/uL (0-0.2); COMPLETE YES; EOS % 0.5 %; HEMATOCRIT 26.7 % (42-52); IG% 0.2 %; LYMPH % 19.4 %; LYMPH ABS # 1.79 K/uL (1.2-3.4); MEAN CELL VOLUME 90.5 fL (80-100); MEAN CORPUSCULAR HEMOGLOBIN 30.8 pg (25-34); MEAN CORPUSCULAR HGB CONC 34.1 g/dl (32-36); MEAN PLATELET VOLUME 9.9 fL (7.4-10.4); NEUT % 69.8 %; PLATELET COUNT 127 K/uL (130-400); RED BLOOD COUNT 2.95 M/uL (4.7-6.1); WHITE BLOOD COUNT 9.21 K/uL (4.8-10.8)
[2017-07-12 06:53] LABS: CALCIUM 8.5 mg/dl (8.5-10.1); MAGNESIUM 2.2 mg/dl (1.8-2.4); POTASSIUM 4.3 mmol/L (3.5-5.1)
[2017-07-12] MEDS: FERROUS GLUCONATE 324 MG TAB PO SCH (07:31)
[2017-07-12] MEDS: DOCUSATE SODIUM 100 MG CAP PO SCH (07:31)
[2017-07-12] MEDS: ASPIRIN 81 MG ECTAB PO SCH (07:31)
[2017-07-12] MEDS: PANTOprazole SOD 40 MG TAB PO SCH (07:31)
[2017-07-12] MEDS: MULTIVITAMIN TAB PO SCH (07:31)
[2017-07-12] MEDS: MAGNESIUM OXIDE 400 MG TAB PO SCH (07:31)
--- NOTE | 2017-07-12 07:40 | Orthopedic Progress Note ---
Orthopedic Progress Note Date of Service Jul 12, 2017. Subjective Post OP Day: 2 Reports: feeling well, pain controlled w PO medications, Denies: complaints, chest pain, SOB, nausea / vomiting, light headedness, calf pain Additional Notes: has long standing numbness in his foot from previous back issues, no change or worsening. Objective calves soft nontender, N/V intact, hip located, capillary refill less than 2 sec., incision C/D/I, A&O x3, toes mobile Date Time Temp Pulse Resp B/P (MAP) Pulse Ox O2 Delivery O2 Flow Rate FiO2 07/12/17 05:56 36.6 82 16 142/66 (91) 96 Room Air 07/12/17 03:31 137/68 (91) 07/12/17 00:10 Room Air 07/11/17 23:17 36.6 83 16 162/71 (101) 98 Room Air 07/11/17 17:45 80 128/65 (86) 07/11/17 15:22 36.6 68 16 152/73 (99) 100 Room Air 07/11/17 15:20 Room Air 07/11/17 13:45 36.6 71 18 124/65 (84) 99 Room Air Laboratory Results 24 Hours: Test 07/12/17 05:40 White Blood Count 9.21 K/uL Red Blood Count 2.95 M/uL Hemoglobin 9.1 g/dL Hematocrit 26.7 % Mean Corpuscular Volume 90.5 fL Mean Corpuscular Hemoglobin 30.8 pg Mean Corpuscular Hemoglobin Concent 34.1 g/dl Platelet Count 127 K/uL Mean Platelet Volume 9.9 fL Neutrophils (%) (Auto) 69.8 % Lymphocytes (%) (Auto) 19.4 % Monocytes (%) (Auto) 10.0 % Eosinophils (%) (Auto) 0.5 % Basophils (%) (Auto) 0.1 % Neutrophils # (Auto) 6.42 K/uL Lymphocytes # (Auto) 1.79 K/uL Monocytes # (Auto) 0.92 K/uL Eosinophils # (Auto) 0.05 K/uL Basophils # (Auto) 0.01 K/uL Assessment & Plan Assessment: 86 yo male stable POD #2 s/p right PAMELA Plan: 1. Med management 2. DVT prophylaxis- ASA, SCDs 3. PT/OT 4. D/C planning- home w/ HH BUN/Cre improved today HTN: Hydralazine ordered, BUN/Cre improved from yesterday, will resume his home BP meds upon discharge if ok with medicine. Discharge Planning Discharge Planning: home with home health DVT Prophylaxis: TEDs, SCDs, ASA Therapy: Physical Therapy
[2017-07-12] MEDS ORDERED: ASPEC81 PO (07:44)
[2017-07-12] MEDS ORDERED: CLC100 PO (07:44)
[2017-07-12] MEDS ORDERED: ONDA8TAB6 PO (07:44)
[2017-07-12] MEDS ORDERED: HYDR-5688 PO (07:44)
[2017-07-12 08:30] VITALS: BP 142/66; PULSE 82; TEMP 36.6; O2SAT 96
[2017-07-12] MEDS ORDERED: ULT50X PO (08:40)
--- NOTE | 2017-07-12 10:52 | Progress Note ---
Subjective Date of Service: Jul 12, 2017. Subjective Pt evaluation today including: conversation w/ patient, conversation w/ family , physical exam, chart review, lab review, review of studies, conversation w/ enterprise resource planning consultant, review of inpatient medication list Doing well, out of bed to chair, no complaining Review of Systems Constitutional: No fever, No chills, No sweats, No weight loss, No weakness, No fatigue, No problem reported Eyes: No worsening of vision, No eye pain, No redness, No discharge, No diplopia ENT: No hearing loss, No unusual epistaxis, No nasal symptoms, No sore throat, No tinnitus, No dental problems, No trouble swallowing Respiratory: No cough, No sputum, No wheezing, No shortness of breath, No dyspnea on exertion, No dyspnea at rest, No hemoptysis Cardiac: No chest pain, No orthopnea, No PND, No edema, No claudication, No palpitations Abdomen: No pain, No nausea, No vomiting, No diarrhea, No constipation Musculoskeletal: + joint pain (pain well controlled), No muscle pain, No swelling, No calf pain Male : No dysuria, No urinary frequency, No incontinence, No nocturia more than once/night, No slowing stream, No hematuria Neurologic: No memory loss, No paralysis, No weakness, No numbness/tingling, No vertigo, No balance problems Psychiatric: No depression symptoms, No anhedonism, No anxiety, No insomnia, No substance abuse Heme: No abnormal bleeding/bruising, No clotting problems, No swollen lymph nodes, No night sweats Endo: No fatigue, No excessive thirst, No excessive urination Skin: No rash, No itch, No new/changing skin lesions, No color change, No bleeding Objective Vital Signs Date Time Temp Pulse Resp B/P (MAP) Pulse Ox O2 Delivery O2 Flow Rate FiO2 07/12/17 08:30 36.6 82 16 96 Room Air 07/12/17 07:25 Room Air 07/12/17 05:56 36.6 82 16 142/66 (91) 96 Room Air 07/12/17 03:31 137/68 (91) 07/12/17 00:10 Room Air 07/11/17 23:17 36.6 83 16 162/71 (101) 98 Room Air 07/11/17 17:45 80 128/65 (86) 07/11/17 15:22 36.6 68 16 152/73 (99) 100 Room Air 07/11/17 15:20 Room Air 07/11/17 13:45 36.6 71 18 124/65 (84) 99 Room Air Physical Exam General Appearance: WD/WN, no apparent distress Eyes: normal inspection, PERRL, EOMI, sclerae normal ENT: normal ENT inspection, hearing grossly normal, pharynx normal Neck: supple, no adenopathy, thyroid normal, no JVD, no carotid bruits, trachea midline Respiratory/Chest: chest non-tender, lungs clear, normal breath sounds, no respiratory distress, no accessory muscle use Cardiovascular: regular rate, rhythm, no edema, no gallop, no JVD, no murmur Abdomen: normal bowel sounds, non tender, soft, no organomegaly, no pulsatile mass Extremities: non-tender, normal inspection, no pedal edema, no calf tenderness , normal capillary refill, pelvis stable Neurologic/Psychiatric: distributed generation project manager II-XII nml as tested, no motor/sensory deficits, alert, normal mood/affect, oriented x 3 Skin: normal color, warm/dry, no rash Lymphatic: no adenopathy Laboratory Results Last 24 Hours Test 07/12/17 05:40 White Blood Count 9.21 K/uL Red Blood Count 2.95 M/uL Hemoglobin 9.1 g/dL Hematocrit 26.7 % Mean Corpuscular Volume 90.5 fL Mean Corpuscular Hemoglobin 30.8 pg Mean Corpuscular Hemoglobin Concent 34.1 g/dl Platelet Count 127 K/uL Mean Platelet Volume 9.9 fL Neutrophils (%) (Auto) 69.8 % Lymphocytes (%) (Auto) 19.4 % Monocytes (%) (Auto) 10.0 % Eosinophils (%) (Auto) 0.5 % Basophils (%) (Auto) 0.1 % Neutrophils # (Auto) 6.42 K/uL Lymphocytes # (Auto) 1.79 K/uL Monocytes # (Auto) 0.92 K/uL Eosinophils # (Auto) 0.05 K/uL Basophils # (Auto) 0.01 K/uL RDW Standard Deviation 41.9 fL RDW Coefficient of Variation 12.7 % Immature Granulocyte % (Auto) 0.2 % Immature Granulocyte # (Auto) 0.02 K/uL Sodium Level 140 mmol/L Potassium Level 4.3 mmol/L Chloride Level 108 mmol/L Carbon Dioxide Level 27 mmol/L Anion Gap 5.0 mmol/L Blood Urea Nitrogen 22 mg/dl Creatinine 1.00 mg/dl Est Creatinine Clear Calc Drug Dose 59.4 ml/min Estimated GFR () 78.6 Estimated GFR (Non- 67.8 BUN/Creatinine Ratio 22.0 Random Glucose 88 mg/dl Calcium Level 8.5 mg/dl Magnesium Level 2.2 mg/dl Assessment and Plan 86 y/o male s/p R PAMELA by Dr. Grant on 07/10. Hospitalist consulted for medical management s/p R PAMELA by Dr. Grant on 07/10: - Pain management, PT/OT, and DVT prophylaxis as per primary team - Follow postop CBC and PRP - Encourage incentive spirometer HTN: - Hold Amlodipine/Valsartan pending postop PRP . Blood pressure still good at 110, will continue to hold , patient's creatinine raised to 1.5 from normal range yesterday, today normal Advised patient can restart home blood pressure medicine upon discharge, I see patient is going to be discharged home today - Hydralazine IV PRN Possible acute kidney injury with elevated creatinine, at 1.5, which is normalized today CAD, HLD: Stable continue Zocor 40 mg daily BPH: Stable, Continue Hytrin and Avodart GI prophylaxis: Protonix 40 mg daily DVT prophylaxis: ASA 81 mg BID as per surgical team Code Status: LEVEL I, FULL Dispo: As per primary team Continued [facility] stay due to: other Discharge planning: home
--- NOTE | 2017-07-15 20:53 | DISCHARGE SUMMARY ---
DISCHARGE DIAGNOSIS: Degenerative joint disease, right hip. SECONDARY DIAGNOSES: Hyperlipidemia, coronary artery disease, hypertension, and osteoarthritis. CONSULTS: None. COMPLICATIONS: None. PROCEDURE: Right total hip arthroplasty, performed by Dr. Grant on 07/10/2017. BRIEF HISTORY: As dictated in the history and physical. HOSPITAL SUMMARY: The patient was admitted on the above date and had the above-noted surgery performed which he tolerated well. On his first postoperative day, he was feeling well. Neurovascularly intact. Dressings clean, dry and intact. Toes were mobile. Vital signs were stable and he was afebrile. Hemoglobin was 9.4, and he was started on physical therapy protocol and continued on DVT prophylaxis and pain management. By his second postoperative day, he was feeling well and pain was controlled. He had had noted longstanding numbness in his foot from the previous back issues, which had not changed or worsened. Calves were soft and nontender. Hip was located. Incision was clean, dry and intact. Toes were mobile. Vital signs were stable. He was afebrile. Hemoglobin was 9.1 and he was progressing with his physical therapy and it was felt he could be discharged to home with home health services on 07/12/2017. For further review, please see chart. LABORATORY AND X-RAY DATA: As per chart. DISCHARGE INSTRUCTIONS: The patient was discharged to home in satisfactory condition on 07/12/2017. DIET: Regular. ACTIVITY: Weightbearing as tolerated right lower extremity. Follow PAMELA instruction sheets and special care instructions as noted. FOLLOWUP: Follow up with Dr. Grant in 2 weeks. The patient to call for appointment if one has not been made for you. DISCHARGE MEDICATIONS: Aspirin 81 mg p.o. b.i.d., Colace 100 mg p.o. b.i.d., [place] 5/325 1-2 tabs p.o. q. 4-6 hours p.r.n., Zofran 8 mg p.o. q. 8 hours p.r.n. nausea, tramadol 50-100 mg p.o. q. 4 hours p.r.n. Resume home meds as listed. Once you are done taking your aspirin twice daily for 30 days, resume once daily dosing.
== END 2017-07-12 11:59 | disposition home health service (06) | DRG 470 ==
LOC: C.ACU 07:37 → C.3E 08:06 → ENRESERV 12:21
PROC: 0SR90JA Replacement of Right Hip Joint with Synthetic Substitute, Uncemented, Open Approach (ICD-10-PCS; principal; 2017-07-10 10:00)
DX: M16.11 Unilateral primary osteoarthritis, right hip (principal); N17.9 Acute kidney failure, unspecified; E78.5 Hyperlipidemia, unspecified; I10 Essential (primary) hypertension; Z79.82 Long term (current) use of aspirin; I25.10 Atherosclerotic heart disease of native coronary artery without angina pectoris; N40.0 Benign prostatic hyperplasia without lower urinary tract symptoms